=== PATIENT | female | born 1965 | race Caucasian/White ===

== ENCOUNTER → 2021-01-07 | Day surgery (SDC) | payer OTHER ==
[~2021-01-07] MED LIST: ESTRADIOL1 MG PO; MIDAZOLAM HCL 2 MG/2 ML VIAL ONE; PREMARIN0.3 MG PO; PROTONIX20 MG PO; SINGULAIR10 MG PO; TOVIAZ8 MG
[2021-01-07 10:35] VITALS: BP 110/64
== END | disposition home or self-care (01) ==
LOC: OR 05:42
PROVIDERS: ATTEND Internal Medicine Gastroenterology
DX: K29.70 Gastritis, unspecified, without bleeding (principal); K31.7 Polyp of stomach and duodenum; K20.90 Esophagitis, unspecified without bleeding; K22.8 Other specified diseases of esophagus; K21.9 Gastro-esophageal reflux disease without esophagitis; Z20.822 Contact with and (suspected) exposure to COVID-19; Z87.19 Personal history of other diseases of the digestive system
CPT/HCPCS: 43239; 43450; 88305; 88312; 93005; J2250; U0002